=== PATIENT | female | born 1995 | race Caucasian/White ===

== ENCOUNTER 2017-02-07 22:58 | Emergency (ER) ==
[2017-02-07 23:21] VITALS: BP 107/73; TEMP 100.7; BMI 34.7
[2017-02-08 00:07] LABS: URINE PREGNANCY INTERNAL QC INTERNAL QC VALID
[2017-02-08] MEDS: MOTRIN SUSP PO STA (00:16)
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
== END 2017-02-08 01:40 | disposition home or self-care (01) ==
LOC: ED 22:58
DX: M79.621 Pain in right upper arm (principal); M25.532 Pain in left wrist; R91.1 Solitary pulmonary nodule; V89.2XXA Person injured in unspecified motor-vehicle accident, traffic, initial encounter
CPT/HCPCS: 81025; 99283

== ENCOUNTER 2017-09-19 17:48 | Emergency (ER) ==
[2017-09-19 17:53] VITALS: BP 105/72; TEMP 98.2; BMI 31.1
--- NOTE | 2017-09-19 19:01 | ED.PDOC ---
General Stated Complaint: multple complaints, cough, chest and back pain with breathing. sorethorat, body aches, Diarrhea, vertigo. Has been exposed to family with the flu Time Seen by Physician: 18:59 Mode of Arrival: Walk-In Information Source: Patient Nursing and Triage Documentation Reviewed and Agree: Yes Reviewed sepsis parameters & appropriate labs ordered?: Yes <SURJIT CALERO - Last Filed: 09/19/17 18:59> System Inflammatory Response Syndrome: Not Applicable <TISH GRAY - Last Filed: 09/19/17 20:02> ED Provider: Dr. TISH GRAY Chief Complaint: Respiratory Complaint Sepsis Protocol: For patient's 13 years and over: Temp is 96.8 and below OR 101 and greater Pulse >90 BPM Resp >20/minute Acutely Altered Mental Status Are patient's symptoms suggestive of a new infection, such as: -Pneumonia -Skin, Soft Tissue -Endocarditis -UTI -Bone, Joint Infection -Implantable Device -Acute Abdominal Infection -Wound Infection -Meningitis -Blood Stream Catheter Infection -Unknown Miscellaneous Complaint Exam - Complex/Multi-System Complaint/Exam Onset/Duration: 3 days Symptoms Are: Still present Initial Severity: Moderate Current Severity: Moderate Associated Signs and Symptoms: Reports: Cough, Chest pain (with breathing ), Diarrhea Recent Echo/LV Function: No Respiratory Distress: None Glascow Coma Scale (see protocol): 15 Focal Weakness: Present: None Focal Sensory Loss: Present: None Gait: Normal Gag Reflex Present: Yes Babinski Sign: Negative Right, Negative Left Joint Swelling Present: No In-Dwelling Device Present: No <SURJIT CALERO - Last Filed: 09/19/17 18:59> Review of Systems - Review Of Systems Constitutional: Reports: Malaise Eyes: Reports: No symptoms Ears, Nose, Mouth, Throat: Reports: Throat pain Respiratory: Reports: Cough Cardiac: Reports: Chest pain, Lightheadedness GI: Reports: Diarrhea, Nausea Musculoskeletal: Reports: Back pain Skin: Reports: No symptoms Neurological: Reports: Anxiety Endocrine: Reports: No symptoms Hematologic/Lymphatic: Reports: No symptoms All Other Systems: Reviewed and Negative <SURJIT CALERO - Last Filed: 09/19/17 18:59> Past Medical History - Past Medical History Previously Healthy: Yes Endocrine: Reports: None Cardiovascular: Reports: None Respiratory: Reports: None Hematological: Reports: None Gastrointestinal: Reports: None Genitourinary: Reports: None Neuro/Psych: Reports: None Musculoskeletal: Reports: None Cancer: Reports: None Last Menstrual Period: implant in arm does not have periods. - Surgical History General Surgical History: Reports: Other (18 inch christen in upper back 2007 - scoliosis) - Family History Family History: Reports: Unknown - Social History Smoking Status: Current every day smoker Hx Substance Use: No Alcohol Screening: Occasionally <SURJIT CALERO - Last Filed: 09/19/17 18:59> Physical Exam - Physical Exam Appearance: Well-appearing, No pain distress, Well-nourished Eyes: BARBARA, EOMI, Conjunctiva clear ENT: Ears normal, Nose normal, Oropharynx normal Respiratory: Airway patent, Breath sounds clear, Breath sounds equal, Respirations nonlabored Cardiovascular: RRR, Pulses normal, No rub, No murmur GI/: Soft, Nontender, No masses, Bowel sounds normal, No Organomegaly Musculoskeletal: Normal strength, ROM intact, No edema, No calf tenderness Skin: Warm, Dry, Normal color Neurological: Sensation intact, Motor intact, Reflexes intact, Cranial nerves intact, Alert, Oriented Psychiatric: Affect appropriate, Mood appropriate <TISH GRAY - Last Filed: 09/19/17 20:02> Critical Care Note - Critical Care Note Total Time (mins): 10 <TISH GRAY - Last Filed: 09/19/17 20:02> - Course Orders, Labs, Meds: Lab Review 09/19/17 18:55 Influenza A (Rapid) Negative by naat Influenza B (Rapid) Negative by naat Orders Category Date Time Status MOLECULAR FLU A/B Stat LAB 09/19/17 18:55 Completed RAPID STREP SCREEN [MOLECULAR GROUP A STREP] Stat LAB 09/19/17 18:55 Completed Vital Signs: Temp Pulse Resp BP Pulse Ox 09/19/17 17:48 98.2 F 73 16 105/72 98 Departure <SURJIT CALERO - Last Filed: 09/19/17 18:59> - Departure Time of Disposition: 19:59 Pt referred to PMD for follow-up: No Disposition Discussed With: Patient, Family <TISH GRAY - Last Filed: 09/19/17 20:02> - Departure Disposition: HOME SELF-CARE Discharge Problem: URTI (acute upper respiratory infection) Instructions: Upper Respiratory Infection (ED) Condition: Stable Additional Instructions: Increase Hydration Tylenol prn Prescriptions: Cephalexin [Keflex] 500 mg PO Q12HR #14 capsule Prednisone 10 mg PO BIDWM #14 tablet Allergies/Adverse Reactions: Allergies OPAL Wrap Adverse Reaction (Uncoded 09/19/17 17:54) Swelling Home Medications: Ambulatory Orders Cephalexin [Keflex] 500 mg PO Q12HR #14 capsule 09/19/17 Prednisone 10 mg PO BIDWM #14 tablet 09/19/17
== END 2017-09-19 20:05 | disposition home or self-care (01) ==
LOC: ED 17:48
DX: J06.9 Acute upper respiratory infection, unspecified (principal); F17.210 Nicotine dependence, cigarettes, uncomplicated
CPT/HCPCS: 87502; 87651; 99283

== ENCOUNTER 2017-12-29 09:00 | Emergency (ER) ==
[2017-12-29 09:01] VITALS: BMI 31.1
[2017-12-29 09:11] VITALS: BP 105/72; TEMP 98.8
--- NOTE | 2017-12-29 09:23 | ED.PDOC ---
General ED Provider: Dr. CHRISTINE MONZON Chief Complaint: Abscess Stated Complaint: Pain inner Lt thigh-located at panty line. Onset last week. Worsened over the weekend and had spontaneous rupture and drainage beginning Thursday with purulent drainage plus additional on Thursday with bloody drainage. Had improved by 30 %. Denies genital pain.Has some leftover antibiotics(?Keflex ) which she started taking on Thursday. Time Seen by Physician: 09:15 Mode of Arrival: Walk-In Information Source: Patient Referred to ED by: Other (self) Nursing and Triage Documentation Reviewed and Agree: Yes Reviewed sepsis parameters & appropriate labs ordered?: Yes System Inflammatory Response Syndrome: Not Applicable Sepsis Protocol: For patient's 13 years and over: Temp is 96.8 and below OR 101 and greater Pulse >90 BPM Resp >20/minute Acutely Altered Mental Status Are patient's symptoms suggestive of a new infection, such as: -Pneumonia -Skin, Soft Tissue -Endocarditis -UTI -Bone, Joint Infection -Implantable Device -Acute Abdominal Infection -Wound Infection -Meningitis -Blood Stream Catheter Infection -Unknown System Inflammatory Response Syndrome: Not Applicable Skin Complaint Exam - Skin/Soft Tissue Complaint/Exam Onset/Duration: 3-4 days Symptoms Are: Still present Timing: Constant Initial Severity: Severe Current Severity: Moderate Location: Lt inner thigh Character: Reports: Redness, Swelling, Painful Aggravating: Reports: Touch Associated Signs and Symptoms: Reports: Drainage, Tenderness Related History: Denies: Similar episode, Recent trauma, Recent Med change, Recent inpatient, Recent travel, Immunocompromised Related Surgical History: Reports: None Recent Exposure to Others w/Similar Symptoms: Yes Skin Findings: Present: Erythema, Induration, Fluctuant mass Joint Tenderness Present: No Differential Diagnoses: Abscess, Cellulitis, MRSA Review of Systems - Review Of Systems Constitutional: Reports: No symptoms Eyes: Reports: No symptoms Ears, Nose, Mouth, Throat: Reports: No symptoms Respiratory: Reports: No symptoms Cardiac: Reports: No symptoms GI: Reports: No symptoms : Reports: No symptoms Musculoskeletal: Reports: No symptoms Skin: Reports: No symptoms, Change in color, Other Neurological: Reports: No symptoms Endocrine: Reports: No symptoms Hematologic/Lymphatic: Reports: No symptoms All Other Systems: Reviewed and Negative Past Medical History - Past Medical History Previously Healthy: Yes Endocrine: Reports: None Cardiovascular: Reports: None Respiratory: Reports: None Hematological: Reports: None Gastrointestinal: Reports: None Genitourinary: Reports: None Neuro/Psych: Reports: None Musculoskeletal: Reports: None Cancer: Reports: None Last Menstrual Period: 12/22/17 - Surgical History General Surgical History: Reports: None, Other (18 inch christen in upper back 2007 - scoliosis) - Family History Family History: Reports: Unknown - Social History Smoking Status: Current every day smoker Hx Substance Use: No Alcohol Screening: Occasionally Physical Exam - Physical Exam Appearance: Well-appearing (Induration and sl edema mid inner lt thigh adjacent to groin crease and outer border of labia majora/ induration to adjacent thigh; minimal dark blood drainage at mall opening in skin. Area cleansed-no purulent drainag ne), No pain distress, Well-nourished Eyes: BARBARA, EOMI, Conjunctiva clear ENT: Ears normal, Nose normal, Oropharynx normal Respiratory: Airway patent, Breath sounds clear, Breath sounds equal, Respirations nonlabored Cardiovascular: RRR, Pulses normal, No rub, No murmur GI/: Soft, Nontender, No masses, Bowel sounds normal, No Organomegaly Musculoskeletal: Normal strength, ROM intact, No edema, No calf tenderness Skin: Warm, Dry, Normal color Neurological: Sensation intact, Motor intact, Reflexes intact, Cranial nerves intact, Alert, Oriented Psychiatric: Affect appropriate, Mood appropriate Critical Care Note - Critical Care Note Total Time (mins): 0 Course - Course Vital Signs: Temp Pulse Resp BP Pulse Ox 12/29/17 09:07 98.8 F 92 H 16 105/72 97 Departure - Departure Time of Disposition: 10:25 Disposition: HOME SELF-CARE Discharge Problem: Abscess, Cellulitis of left thigh Instructions: Cellulitis (ED) Condition: Fair Pt referred to PMD for follow-up: Yes (Dr Houston in [place] or Dr Shameka Nguyen(has apt tomorrow)) IPMP verified?: No Additional Instructions: Apply Warm moist heat to area of groin swelling for 20 min periods several times perday Keep area clean and dry Apply FRANCES with clean dressing Take antibiotics as directed -Cleocin 4 times daily See PCP later this week Return to ER if symptoms worsen Take Ultram 50 mg plus Tylenol 325 mg every 6 hrs for pain unrelieved by Aleve 275 mg twice daily Allergies/Adverse Reactions: Allergies OPAL Wrap Adverse Reaction (Uncoded 12/29/17 09:10) Swelling Home Medications: Ambulatory Orders Clindamycin HCl [Cleocin HCl] 300 mg PO QID #20 capsule 12/29/17 Gabapentin 100 mg PO DAILY 12/29/17 Gabapentin 300 mg PO BEDTIME 12/29/17 Lamotrigine [Lamictal] 200 mg PO BID 12/29/17 Tramadol HCl [Ultram] 50 mg PO 3-4XD PRN #20 tablet 12/29/17 Disposition Discussed With: Patient
== END 2017-12-29 10:31 | disposition home or self-care (01) ==
LOC: ED 09:00
DX: L02.416 Cutaneous abscess of left lower limb (principal); L03.116 Cellulitis of left lower limb; F17.210 Nicotine dependence, cigarettes, uncomplicated
CPT/HCPCS: 99283

== ENCOUNTER 2018-06-20 04:29 | Emergency (ER) ==
[2018-06-20] MEDS ORDERED: MOTRIN PO STA (04:49)
[2018-06-20] MEDS ORDERED: NORCO 5-325 PO STA (04:49)
[2018-06-20] MEDS ORDERED: LIDOCAINE HCL 1% SDV IM STA (04:49)
[2018-06-20] MEDS ORDERED: ROCEPHIN IM STA (04:49)
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
[2018-06-20 05:16] VITALS: BP 115/79; TEMP 98.7; BMI 33.0
== END 2018-06-20 05:40 | disposition home or self-care (01) ==
LOC: ED 04:29
DX: L98.9 Disorder of the skin and subcutaneous tissue, unspecified (principal); M79.601 Pain in right arm; S40.861A Insect bite (nonvenomous) of right upper arm, initial encounter; W57.XXXA Bitten or stung by nonvenomous insect and other nonvenomous arthropods, initial encounter
CPT/HCPCS: 96372; 99282